=== PATIENT | male | born 1985 | race Hispanic/Latino ===

== ENCOUNTER 2019-04-01 19:47 | Emergency (ER) | payer SELFPAY ==
[2019-04-01] MEDS ORDERED: NA CHLORIDE 0.9% 1,000 ML ONE (20:41)
[2019-04-01 20:47] LABS: Absolute Lymphocytes (CBC) 1.2 K/uL (0.7-4.9); Basophils % 0.3 % (0-1.3); Hematocrit 41.8 % (39.6-49.0); Lymphocytes % 13.5 % (15.3-44.8); MPV 9.6 fL (7.6-11.3); RBC Red Blood Cell Count 4.93 M/uL (4.33-5.43)
[2019-04-01 21:04] LABS: Potassium 3.2 mmol/L (3.5-5.1)
[2019-04-01 22:33] LABS: Barbiturates NEGATIVE (NEGATIVE); Benzodiazepines NEGATIVE (NEGATIVE); Cocaine NEGATIVE (NEGATIVE); METHAMPHETAM NEGATIVE (NEGATIVE); Methadone NEGATIVE (NEGATIVE); Opiates NEGATIVE (NEGATIVE); Phencyclidine NEGATIVE (NEGATIVE); THC Cannibis NEGATIVE (NEGATIVE)
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
--- NOTE | 2019-04-01 23:33 | ER ---
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 It lasted like 4 to 5 minutes, we had him on his side, and then he just came up quick like something hit him and he was trying to grab everybody" The medics at the site said the patient was post-ictal until 7:05. Transition of care: patient was not received from another setting of care. Onset of symptoms was April 01, 2019 at 17:51. Risk Assessment: Do you want to hurt yourself or someone else? Patient reports no desire to harm self or others. Initial Sepsis Screen: Does the patient meet any 2 criteria? No. Patient's initial sepsis screen is negative. Does the patient have a suspected source of infection? No. Patient's initial sepsis screen is negative. Care prior to arrival: None. 19:58 Method Of Arrival: Ambulatory [facility] 19:58 Acuity: MICHELLE 2 aj1 Historical: - Allergies: 20:06 No Known Allergies; ea - Home Meds: 20:06 None [Active]; ea - PMHx: 20:06 None; ea - PSHx: 20:06 None; ea - Immunization history:: Adult Immunizations up to date. - Social history:: Smoking status: Patient uses tobacco products, smokes one pack cigarettes per day. - Ebola Screening: : No symptoms or risks identified at this time. Screenin:06 Abuse screen: Denies threats or abuse. Nutritional screening: No deficits noted. ea Tuberculosis screening:. Fall Risk None identified. Assessment: 20:07 General: Appears in no apparent distress. Behavior is calm, cooperative, appropriate ea for age. Pain: Denies pain. Neuro: Level of Consciousness is awake, alert, obeys commands, Oriented to person, place, time, situation. Neuro: Seizure activity reported prior to arrival. Cardiovascular: Patient's skin is warm and dry. Respiratory: Airway is patent Respiratory effort is even, unlabored, Respiratory pattern is regular, symmetrical. Derm: Skin is pink, warm \\T\\ dry. Musculoskeletal: Circulation, motion, and sensation intact. 21:50 Reassessment: Patient and/or family updated on plan of care and expected duration. Pain ea level reassessed. Patient is alert, oriented x 3, equal unlabored respirations, skin warm/dry/pink. 22:14 Reassessment: Patient and/or family updated on plan of care and expected duration. Pain ea level reassessed. Patient is alert, oriented x 3, equal unlabored respirations, skin warm/dry/pink. Awaiting on CT results. 23:00 Reassessment: Patient and/or family updated on plan of care and expected duration. Pain ea level reassessed. Patient is alert, oriented x 3, equal unlabored respirations, skin warm/dry/pink. Awaiting for CT results. 23:53 Reassessment: Patient and/or family updated on plan of care and expected duration. Pain ea level reassessed. Patient is alert, oriented x 3, equal unlabored respirations, skin warm/dry/pink. Discharge instruction given to patient, verbalized the understanding of instruction. Pt left ED ambulatory accompanied by family. Vital Signs: 20:01 BP 134 / 90; Pulse 89; Resp 18; Temp 97.8; Pulse Ox 100% on R/A; Weight 107.05 kg (R); aj1 Height 5 ft. 11 in. (180.34 cm); Pain 0/10; 22:14 BP 127 / 80; Pulse 75; Resp 18; Pulse Ox 98% on R/A; ea 23:00 BP 133 / 91; Pulse 83; Resp 18; Pulse Ox 99% on R/A; ea 23:45 BP 128 / 82; Pulse 78; Resp 18; Temp 97.7(TE); Pulse Ox 99% on R/A; ea 20:01 Body Mass Index 32.91 (107.05 kg, 180.34 cm) aj1 ED Course: 19:51 Patient arrived in ED. cf2 20:00 Rivera Schroeder MD is Attending Physician. gs 20:00 Triage completed. aj1 20:05 Shannan Kaiser RN is Primary Nurse. ea 20:06 Arm band placed on right wrist. Patient placed in an exam room, on a stretcher, on ea anodic treater, on pulse oximetry. 20:07 Patient has correct armband on for positive identification. Placed in gown. Bed in low ea position. Call light in reach. Side rails up X 1. 20:41 Inserted saline lock: 20 gauge in right antecubital area, using aseptic technique. ea Blood collected. 20:44 Radiology exam delayed due to lab results not completed at this time. (BUN/Creatinine). 2 21:33 CT Head Brain w/wo Con In Process Unspecified. EDMS 23:50 No provider procedures requiring assistance completed. IV discontinued, intact, ea bleeding controlled, No redness/swelling at site. Pressure dressing applied. Administered Medications: 20:41 Drug: NS 0.9% 1000 ml Route: IV; Rate: 1 bolus; Site: right antecubital; ea 22:00 Follow up: Response: No adverse reaction; IV Status: Completed infusion; IV Intake: ea 1000ml Intake: 22:00 IV: 1000ml; Total: 1000ml. ea Outcome: 23:31 Discharge ordered by . 23:54 Discharged to home ambulatory, with family. ea 23:54 Condition: stable 23:54 Discharge instructions given to patient, Instructed on discharge instructions, follow up and referral plans. Demonstrated understanding of instructions, follow-up care. 23:55 Patient left the ED. ea Signatures: Dispatcher [employer] EDIL Perla El RN RN aj1 McGuire, Victoria 2 Shannan Kaiser RN RN ea Starr, Gregory, MD MD gs Frazier, Celesta 2
[2019-04-02 01:02] VITALS: O2SAT 99
[2019-04-02 01:04] VITALS: BP 128/82; TEMP 97.7
--- NOTE | 2019-04-06 10:28 | RAD REPORT ---
EXAM DESCRIPTION: CT - Head Brain W/Wo Con - 04/02/2019 12:06 am CLINICAL HISTORY: Seizure. COMPARISON: None. TECHNIQUE: CT scan of the brain without and with IV contrast. This exam was performed according to o departmental dose-optimization program, which includes automated exposure control, adjustment of t he mA and/or kV according to patient size and/or use of iterative reconstruction technique. FINDINGS: There is an old area of encephalomalacia in the left frontotemporal region. No abnormal pa renchymal enhancement is seen. No evidence of acute infarction, intracranial hemorrhage, extra-axial fluid collection, or midline shift. Partial opacification of bilateral ethmoid air cells. No depresse d skull fracture. IMPRESSION: No acute intracranial findings. Electronically signed by: Anibal Schmidt MD 04/01/2019 9:48 PM CDT
== END 2019-04-01 23:55 | disposition home or self-care (01) ==
LOC: ER 19:47
DX: G40.909 Epilepsy, unspecified, not intractable, without status epilepticus (principal); F17.210 Nicotine dependence, cigarettes, uncomplicated
CPT/HCPCS: 36415; 80048; 80307; 82550; 85025; 96360; 99284; J7030

== ENCOUNTER 2022-03-10 13:55 | Emergency (ER) | payer OTHER, SELFPAY ==
[2022-03-10 14:29] LABS: Absolute Lymphocytes (CBC) 2.3 K/uL (0.7-4.9); Hematocrit 47.2 % (39.6-49.0); Lymphocytes % 28.4 % (15.3-44.8); MCV 86.2 fL (80-100); MPV 10.1 fL (7.6-11.3); RBC Red Blood Cell Count 5.48 M/uL (4.33-5.43)
[2022-03-10 14:38] LABS: Potassium 3.6 mmol/L (3.5-5.1)
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
[2022-03-10 15:03] LABS: Urine Blood Negative (Negative); Urine Glucose Negative (Negative); Urine Protein Trace (Negative)
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
[2022-03-10 15:15] LABS: Barbiturates NEGATIVE (NEGATIVE); Benzodiazepines NEGATIVE (NEGATIVE); Cocaine NEGATIVE (NEGATIVE); METHAMPHETAM NEGATIVE (NEGATIVE); Methadone NEGATIVE (NEGATIVE); Opiates NEGATIVE (NEGATIVE); Phencyclidine NEGATIVE (NEGATIVE); THC Cannibis NEGATIVE (NEGATIVE)
[2022-03-10 16:46] VITALS: TEMP 99
[2022-03-10 16:52] VITALS: BP 126/71; O2SAT 99
== END 2022-03-10 15:26 | disposition home or self-care (01) ==
LOC: ER 13:55
DX: R41.82 Altered mental status, unspecified (principal); F17.210 Nicotine dependence, cigarettes, uncomplicated
CPT/HCPCS: 85025; 80048; 36415; 80320; 82565; 81003; 80307; 70450; 72125; 71260; 74177; 99284; Q9967

== ENCOUNTER 2023-12-01 06:52 | Emergency (ER) | payer SELFPAY ==
[2023-12-01] MEDS ORDERED: predniSONE 20 MG TAB ONE (07:22)
--- NOTE | 2023-12-01 07:26 | ER ---
Nurse's Notes [facility] Name: Favio Arellano Age: 38 yrs Sex: Male : 1985 Arrival Date: 12/01/2023 Time: 06:52 Bed 5 Private MD: Diagnosis: Rash and other nonspecific skin eruption Presentation: 11/30 07:07 Chief complaint: Patient states: he has bilateral rashes on his hands that is up to his ap3 elbows. patient states they started has mosquito bites approx 3-4 weeks ago. patient has been also concerned he might have high blood pressure. Coronavirus screen: At this time, the client does not indicate any symptoms associated with coronavirus-19. Ebola Screen: No symptoms or risks identified at this time. Initial Sepsis Screen: Does the patient meet any 2 criteria? HR > 90 bpm. Does the patient have a suspected source of infection? No. Patient's initial sepsis screen is negative. Risk Assessment: Do you want to hurt yourself or someone else? Patient reports no desire to harm self or others. Onset of symptoms is unknown. 07:07 Method Of Arrival: Ambulatory ap3 07:07 Acuity: MICHELLE 4 ap3 Triage Assessment: 07:09 General: Appears in no apparent distress. Behavior is calm, cooperative, appropriate ap3 for age. Pain: Complains of pain in right arm and left arm. Neuro: Level of Consciousness is awake, alert, obeys commands, Oriented to person, place, time, situation. Cardiovascular: Patient's skin is warm and dry. Respiratory: Airway is patent Respiratory effort is even, unlabored, Respiratory pattern is regular, symmetrical. Derm: Rash noted that is itchy, on right arm and left arm. Historical: - Allergies: 07:08 No Known Allergies; ap3 - Home Meds: 07:08 None [Active]; ap3 - PMHx: 07:08 None; ap3 - PSHx: 07:08 None; ap3 - Immunization history:: Client reports receiving the 2nd dose of the Covid vaccine. - Infectious Disease History:: Denies. - Social history:: Smoking status: Patient denies any tobacco usage or history of. Screenin:09 Abuse screen: Denies threats or abuse. Nutritional screening: No deficits noted. ap3 Tuberculosis screening: No symptoms or risk factors identified. 07:27 [facility] ED Fall Risk Assessment (Adult) History of falling in the last 3 months, ko1 including since admission No falls in past 3 months (0 pts) Confusion or Disorientation No (0 pts) Intoxicated or Sedated No (0 pts) Impaired Gait No (0 pts) Mobility Assist Device Used No (0 pt) Altered Elimination No (0 pt) Score/Fall Risk Level 0 - 2 = Low Risk Oriented to surroundings, Maintained a safe environment, Educated pt \T\ family on fall prevention, incl call for assistance when getting out of bed, Assessed \T\ reinforced patient's understanding of fall precautions, Provided non-skid footwear, Hourly rounding (assess needs \T\ fall precautionary measures) done. Assessment: 07:27 General: Appears in no apparent distress. Behavior is calm, cooperative, appropriate ko1 for age. Pain: Denies pain. Neuro: No deficits noted. Cardiovascular: No deficits noted. Respiratory: No deficits noted. GI: No deficits noted. : No deficits noted. EENT: No deficits noted. Derm: Rash noted that is red, raised, on left arm and right arm. Musculoskeletal: No deficits noted. Vital Signs: 07:07 BP 129 / 97; Pulse 104; Resp 17; Temp 98.4(O); Pulse Ox 99% on R/A; Weight 108.86 kg; ap3 Height 5 ft. 11 in. ; 07:27 BP 134 / 98; Pulse 99; Resp 18; Pulse Ox 100% ; ko1 07:50 BP 133 / 96; Pulse 100; Resp 17; Temp 98.3; Pulse Ox 97% on R/A; ap3 07:07 Body Mass Index 33.47 (108.86 kg, 180.34 cm) ap3 ED Course: 06:55 Patient arrived in ED. [id number] 07:07 Reva Fang, RN is Primary Nurse. ko1 07:08 Triage completed. ap3 07:09 Arm band placed on left wrist. ap3 07:10 Ed Bone DO is Attending Physician. ms3 07:10 Patient has correct armband on for positive identification. Call light in reach. Side ap3 rails up X 1. Adult w/ patient. Pulse ox on. NIBP on. 07:25 Nathan Barkley DO is Referral Physician. ms3 07:27 Provided Education on: meds. ko1 07:27 No provider procedures requiring assistance completed. Patient did not have IV access ko1 during this emergency room visit. Administered Medications: : Drug: predniSONE PO 60 mg PO once Route: PO; ko1 Medication: : VIS not applicable for this client. ko1 Outcome: :25 Discharge ordered by . ms3 07:50 Discharged to home ambulatory, with family, ap3 07:50 Condition: good 07:50 Discharge instructions given to patient, family, Instructed on discharge instructions, follow up and referral plans. medication usage, Demonstrated understanding of instructions, follow-up care, medications, Prescriptions given X 1, 07:51 Patient left the ED. ap3 Signatures: Lesley Alejandre, RN RN ap3 Ed Bone DO DO ms3 Ailyn [email or web address] Reva Fang, RN RN ko1
--- NOTE | 2023-12-01 07:26 | EDPHYS ---
Physician Documentation [facility] Name: Favio Arellano Age: 38 yrs Sex: Male : 1985 Arrival Date: 12/01/2023 Time: 06:52 Bed 5 Private MD: ED Physician Ed Bone HPI: 11/30 07:20 This 38 yrs old Male presents to ER via Ambulatory with complaints of Rash, ms3 FATIGUE. 07:20 38-year-old male with no past medical history presents to the emergency department for ms3 rash that has been ongoing for 3 weeks on his bilateral hands and left neck. Patient states the area itches. He rates the discomfort a 9/10. Patient denies fevers, chills, nausea, vomiting. Historical: - Allergies: 07:08 No Known Allergies; ap3 - Home Meds: 07:08 None [Active]; ap3 - PMHx: 07:08 None; ap3 - PSHx: 07:08 None; ap3 - Immunization history:: Client reports receiving the 2nd dose of the Covid vaccine. - Infectious Disease History:: Denies. - Social history:: Smoking status: Patient denies any tobacco usage or history of. ROS: 07:20 Constitutional: Negative for fever, and chills. Neck: Negative for injury, pain, and ms3 swelling, Cardiovascular: Negative for chest pain, and palpitations. Respiratory: Negative for shortness of breath, cough, wheezing, and pleuritic chest pain, Abdomen/GI: Negative for abdominal pain, nausea, vomiting, diarrhea, and constipation, MS/Extremity: Negative for injury and deformity, 07:20 Skin: Positive for rash, Exam: 07:20 Constitutional: This is a well developed, well nourished patient who is awake, alert, ms3 and in no acute distress. Head/Face: Normocephalic, atraumatic. Neck: Trachea midline, no cervical lymphadenopathy. Supple, full range of motion without nuchal rigidity, or vertebral point tenderness. No Meningismus. Chest/axilla: Normal chest wall appearance and motion. Nontender with no deformity. Cardiovascular: Regular rate and rhythm with a normal S1 and S2. No gallops, murmurs, or rubs. Normal PMI, no JVD. No pulse deficits. Respiratory: Lungs have equal breath sounds bilaterally, clear to auscultation and percussion. No rales, rhonchi or wheezes noted. No increased work of breathing, no retractions or nasal flaring. Abdomen/GI: Soft, non-tender, with normal bowel sounds. No distension or tympany. No guarding or rebound. No evidence of tenderness throughout. 07:20 Skin: rash can be described as excoriated, Skin thickening bilateral hands and left nape of neck, Vital Signs: 07:07 BP 129 / 97; Pulse 104; Resp 17; Temp 98.4(O); Pulse Ox 99% on R/A; Weight 108.86 kg; ap3 Height 5 ft. 11 in. ; 07:27 BP 134 / 98; Pulse 99; Resp 18; Pulse Ox 100% ; ko1 07:50 BP 133 / 96; Pulse 100; Resp 17; Temp 98.3; Pulse Ox 97% on R/A; ap3 07:07 Body Mass Index 33.47 (108.86 kg, 180.34 cm) ap3 MDM: 07:19 Patient medically screened. ms3 07:20 Differential diagnosis: Eczema vs contact dermatitis vs Psoriasis. Data reviewed: vital ms3 signs, nurses notes, and as a result, I will discharge patient. I considered the following discharge prescriptions or medication management in the emergency department Medications were administered in the Emergency Department. See MAR. Historians other than the Patient: Spouse/Significant Other: Patient's . Counseling: I had a detailed discussion with the patient and/or guardian regarding the historical points, exam findings, and any diagnostic results supporting the discharge/admit diagnosis, the need for outpatient follow up, to return to the emergency department if symptoms worsen or persist or if there are any questions or concerns that arise at home. Special discussion: I discussed with the patient/guardian in detail that at this point there is no indication for admission to the hospital. It is understood, however, that if the symptoms persist or worsen the patient needs to return immediately for re-evaluation. ED course: Discussed physical exam findings with patient and his . Patient to follow-up with primary care physician in 2 to 3 days. Patient understands and agrees with plan. All questions were answered. Return precautions discussed include worsening symptoms, or any other concerns. Patient given prescription for prednisone.. Administered Medications: 07:25 Drug: predniSONE PO 60 mg PO once Route: PO; ko1 Disposition Summary: 12/01/23 07:25 Discharge Ordered Notes: Location: Home ms3 Condition: Stable ms3 Diagnosis - Rash and other nonspecific skin eruption ms3 Followup: ms3 - With: Nathan Barkley DO - When: 2 - 3 days - Reason: Re-evaluation by your physician Discharge Instructions: - Discharge Summary Sheet ms3 - Rash, Adult ms3 Forms: - Medication Reconciliation Form ms3 - Antibiotic Education ms3 - Prescription Opioid Use ms3 - Patient Portal Instructions ms3 - Leadership Thank You Letter ms3 Prescriptions: - Prednisone 20 mg Oral Tablet - take 2 tablets ORAL route once daily for 5 days; 10 tablet; Refills: 0, Product ms3 Selection Permitted Signatures: Lesley Alejandre RN RN ap3 Ed Bone DO DO ms3 Reva Fang RN RN ko1
[2023-12-01 08:05] VITALS: BP 133/96; TEMP 98.3; O2SAT 97
== END 2023-12-01 07:51 | disposition home or self-care (01) ==
LOC: ER 06:52
DX: R21 Rash and other nonspecific skin eruption (principal); R53.83 Other fatigue
CPT/HCPCS: 99284; J7512